=== PATIENT | female | born 1955 | race Caucasian/White ===

== ENCOUNTER 2017-09-09 22:42 | Emergency (ER) | payer BC ==
[~2017-09-09] VITALS: Ht 152.4 cm; Wt 52.6 kg
[2017-09-10] MEDS ORDERED: VENTOLIN HFA18 GM (01:20)
[2017-09-10] MEDS ORDERED: ZITHROMAX500 MG PO (03:42)
[2017-09-10] MEDS ORDERED: TESSALON PERLE100 M1 PO (03:42)
[2017-09-10] MEDS ORDERED: MUCINEX DM ER1 EAC1 PO (03:42)
[2017-09-10] MEDS ORDERED: IPRAT-ALBUT 0.5-3 ML IH (03:42)
[2017-09-10] MEDS ORDERED: MEDROLPACK PO (03:42)
== END 2017-09-10 04:06 | disposition home or self-care (01) ==
LOC: ER 22:42
DX: J06.9 Acute upper respiratory infection, unspecified (principal); J47.9 Bronchiectasis, uncomplicated; J11.1 Influenza due to unidentified influenza virus with other respiratory manifestations